=== PATIENT | female | born 1990 | race Caucasian/White ===

== ENCOUNTER 2018-07-31 12:54 | Emergency (ER) | payer BC ==
[2018-07-31 14:32] LABS: WHITE BLOOD COUNT 10.5 10^3/ul (4.8-10.8)
[2018-07-31 14:32] LABS: ADD MAN DIFF? NO; BASOPHILS % 0.4 % (0.0-2.0); EOSINOPHILS # 0.1 10^3/ul (0.0-0.5); EOSINOPHILS % 0.7 % (0.0-7.0); HEMATOCRIT 32.8 % (37.0-47.0); HEMOGLOBIN 10.7 g/dl (12.0-16.0); LYMPHOCYTES # 2.5 10^3/ul (0.8-2.9); MEAN CORPUSCULAR HEMOGLOBIN 29.7 pg (29.0-33.0); MEAN CORPUSCULAR HGB CONC 32.6 g/dl (32.0-37.0); MEAN CORPUSCULAR VOLUME 91.1 fl (82.0-101.0); MEAN PLATELET VOLUME 11.4 fl (7.4-10.4); MONOCYTE # 0.7 10^3/ul (0.3-0.9); MONOCYTES % 6.4 % (0.0-11.0); NEUTROPHIL # 7.1 10^3/ul (1.6-7.5); NEUTROPHILS % 67.7 % (39.0-77.0); PLATELET COUNT 217 10^3/UL (140-415); RED CELL DISTRIBUTION WIDTH 13.2 % (11.5-14.5)
[2018-07-31 14:42] LABS: ADD UMIC NO; UR ASCORBIC ACID NEGATIVE (NEGATIVE); UR BILIRUBIN (Dip) NEGATIVE (NEGATIVE); UR BLOOD (Dip) NEGATIVE (NEGATIVE); UR CLARITY SLIGHTLY CLOUDY (CLEAR); UR COLOR YELLOW (YELLOW); UR GLUCOSE (Dip) NEGATIVE (NEGATIVE); UR KETONES (Dip) NEGATIVE (NEGATIVE); UR LEUKOCYTE ESTERASE (Dip) NEGATIVE Leu/ul (NEGATIVE); UR NITRITE (Dip) NEGATIVE (NEGATIVE); UR RBC 1 /HPF (0-5); UR SPECIFIC GRAVITY (Dip) 1.011 (1.003-1.030); UR SQUAMOUS EPITHELIAL CELL FEW /HPF (FEW); UR TOTAL PROTEIN (Dip) NEGATIVE (NEGATIVE); UR UROBILINOGEN (Dip) NEGATIVE (NEGATIVE); UR WBC 2 /HPF (0-5)
[2018-07-31 14:51] LABS: ALANINE AMINOTRANSFERASE 15 IU/L (13-69); ALBUMIN 3.6 g/dl (3.3-4.9); ALBUMIN/GLOBULIN RATIO 1.12; ALKALINE PHOSPHATASE 72 IU/L (42-121); ANION GAP 9 (5-13); ASPARTATE AMINO TRANSFERASE 14 IU/L (15-46); BILIRUBIN,INDIRECT 0.1 mg/dl (0-1.1); BILIRUBIN,TOTAL 0.1 mg/dl (0.2-1.3); BLOOD UREA NITROGEN 7 mg/dl (7-20); CALCIUM 9.3 mg/dl (8.4-10.2); CARBON DIOXIDE 25 mmol/L (21-31); CHLORIDE 102 mmol/L (97-110); CREATININE 0.49 mg/dl (0.44-1.00); Estimated GFR > 60 mL/min (>60); GLUCOSE 75 mg/dl (70-220); POTASSIUM 4.3 mmol/L (3.5-5.1); SODIUM 136 mmol/L (135-144); TOTAL PROTEIN 6.8 g/dl (6.1-8.1)
== END 2018-07-31 17:20 | disposition home or self-care (01) ==
LOC: FTE 12:54
DX: O26.892 Other specified pregnancy related conditions, second trimester (principal); R10.9 Unspecified abdominal pain; R06.02 Shortness of breath; Z3A.18 18 weeks gestation of pregnancy
CPT/HCPCS: 76805; 80053; 81001; 81003; 85025; 93005; 93970; 99285-25

== ENCOUNTER 2018-12-01 09:57 | Outpatient (CLI) | payer BC ==
[2018-12-01 11:27] LABS: ADD UMIC YES; UR ASCORBIC ACID NEGATIVE (NEGATIVE); UR BACTERIA FEW /HPF (NONE SEEN); UR BILIRUBIN (Dip) NEGATIVE (NEGATIVE); UR BLOOD (Dip) NEGATIVE (NEGATIVE); UR CLARITY SLIGHTLY CLOUDY (CLEAR); UR COLOR YELLOW (YELLOW); UR GLUCOSE (Dip) NEGATIVE (NEGATIVE); UR KETONES (Dip) NEGATIVE (NEGATIVE); UR LEUKOCYTE ESTERASE (Dip) TRACE Leu/ul (NEGATIVE); UR MUCUS FEW /HPF (NONE SEEN); UR NITRITE (Dip) NEGATIVE (NEGATIVE); UR RBC 3 /HPF (0-5); UR SQUAMOUS EPITHELIAL CELL MODERATE /HPF (FEW); UR TOTAL PROTEIN (Dip) NEGATIVE (NEGATIVE); UR UROBILINOGEN (Dip) NEGATIVE (NEGATIVE); UR WBC 11 /HPF (0-5)
[2018-12-01] MEDS: LACTATED RINGER'S 1,000 ML IV (11:34)
== END 2018-12-01 14:40 | disposition home or self-care (01) ==
LOC: OBT 09:57 → L-D 09:59 → OBT 14:40
DX: O62.9 Abnormality of forces of labor, unspecified (principal); Z3A.35 35 weeks gestation of pregnancy
CPT/HCPCS: 36415; 76818; 81001; 82962; 87086; 96360; 96361

== ENCOUNTER 2018-12-12 05:20 | Inpatient (IN) | payer BC ==
[2018-12-12] MEDS ORDERED: CEFAZOLIN 2 GM/50 ML (PMX) 50 ML IVPB ×2 (06:00→10:00)
[2018-12-12] MEDS ORDERED: CARBOPROST 250 MCG INJ IM ×2 (06:00→10:00)
[2018-12-12] MEDS ORDERED: METHYLERGONOVINE 0.2 MG INJ IM ×2 (06:00→10:00)
[2018-12-12] MEDS ORDERED: MISOPROSTOL 200 MCG TAB PR ×2 (06:00→10:00)
[2018-12-12] MEDS ORDERED: OXYTOCIN 30 UNITS/LR 500 ML IV ×3 (06:00→10:00)
[2018-12-12 06:06] LABS: ADD MAN DIFF? NO
[2018-12-12] MEDS: LACTATED RINGER'S 1,000 ML IV ×4 (06:15→23:15)
[2018-12-12 06:17] LABS: BASOPHILS % 0.3 % (0.0-2.0); EOSINOPHILS # 0.1 10^3/ul (0.0-0.5); EOSINOPHILS % 0.9 % (0.0-7.0); HEMATOCRIT 36.5 % (37.0-47.0); LYMPHOCYTES # 2.5 10^3/ul (0.8-2.9); LYMPHOCYTES % 21.6 % (15.0-51.0); MEAN CORPUSCULAR HEMOGLOBIN 29.7 pg (29.0-33.0); MEAN CORPUSCULAR HGB CONC 32.9 g/dl (32.0-37.0); MEAN CORPUSCULAR VOLUME 90.3 fl (82.0-101.0); MONOCYTE # 0.8 10^3/ul (0.3-0.9); MONOCYTES % 7.2 % (0.0-11.0); NEUTROPHILS % 69.2 % (39.0-77.0); PLATELET COUNT 225 10^3/UL (140-415); RED BLOOD COUNT 4.04 10^6/ul (4.20-5.40); RED CELL DISTRIBUTION WIDTH 15.9 % (11.5-14.5)
[2018-12-12 06:17] LABS: WHITE BLOOD COUNT 11.5 10^3/ul (4.8-10.8)
[2018-12-12 06:37] LABS: INR 0.86; PROTIME 11.8 Sec (11.9-14.9); PT RATIO 0.9
[2018-12-12 06:38] LABS: GLUCOSE 96 mg/dl (70-220)
[2018-12-12] MEDS ORDERED: OXYTOCIN 10 UNIT INJ (07:34)
[2018-12-12] MEDS ORDERED: morphine SULFATE/PF (10 MG/10 ML) INJ (07:34)
[2018-12-12] MEDS ORDERED: METOCLOPRAMIDE 10 MG INJ (07:34)
[2018-12-12] MEDS: CITRIC ACID/NA CITRATE 30 ML CUP PO (07:56)
[2018-12-12] MEDS: ONDANSETRON 4 MG INJ IV (07:56)
[2018-12-12] MEDS ORDERED: DEXAMETHASONE 4 MG/ML 1 ML INJ (09:11)
[2018-12-12] MEDS: OXYTOCIN 30 UNITS/LR 500 ML IV (09:42)
[2018-12-12] MEDS ORDERED: MEPERIDINE 25 MG INJ IV (10:00)
[2018-12-12] MEDS ORDERED: TRIMETHOBENZAMIDE 100 MG/ML VIAL IM ×2 (10:00)
[2018-12-12] MEDS ORDERED: NALOXONE (0.4 MG/ML) INJ IV (10:00)
[2018-12-12] MEDS ORDERED: LABETALOL HCL 20MG INJ IV (10:00)
[2018-12-12] MEDS ORDERED: NACL 0.9% 3 ML SYG IV (10:00)
[2018-12-12] MEDS ORDERED: morphine 2 MG INJ IV (10:00)
[2018-12-12] MEDS ORDERED: IPRATROPIUM (NEB) 0.5 MG/2.5 ML AMP HHN (10:00)
[2018-12-12] MEDS ORDERED: MIDAZOLAM 1 MG/ML 2 ML INJ IV (10:00)
[2018-12-12] MEDS ORDERED: FENTAnyl 50 MCG/ML VIAL IV ×3 (10:00)
[2018-12-12] MEDS ORDERED: HYDROmorphONE 1 MG/5 ML IV SYRINGE IV ×3 (10:00)
[2018-12-12] MEDS ORDERED: ONDANSETRON 4 MG INJ IV ×2 (10:00)
[2018-12-12] MEDS ORDERED: NALBUPHINE HCL (10 MG/1 ML) INJ IV (10:00)
[2018-12-12] MEDS ORDERED: EPHEDrine 25 MG/5 ML SYG IV (10:00)
[2018-12-12] MEDS ORDERED: hydrALAzine 20 MG INJ IV (10:00)
[2018-12-12] MEDS ORDERED: DIPHENHYDRAMINE 50 MG INJ IV ×2 (10:00)
[2018-12-12] MEDS ORDERED: ALBUTEROL 0.083% (NEB) 2.5 MG/3 ML AMP HHN (10:00)
[2018-12-12] MEDS: KETOROLAC 30 MG INJ IV ×2 (10:46→21:34)
[2018-12-12] MEDS: ACCU-CHEK XX ×3 (13:50→21:58)
[2018-12-12] MEDS ORDERED: IBUPROFEN 800 MG TAB PO (14:00)
[2018-12-12] MEDS: morphine 2 MG INJ IV (15:29)
[2018-12-12 17:15] LABS: RAPID PLASMA REAGIN NONREACTIVE (NR)
[2018-12-12] MEDS: CEFAZOLIN 2 GM/50 ML (PMX) 50 ML IVPB (17:24)
[2018-12-13] MEDS: CEFAZOLIN 2 GM/50 ML (PMX) 50 ML IVPB ×2 (01:44→08:55)
[2018-12-13] MEDS: KETOROLAC 30 MG INJ IV (04:16)
[2018-12-13] MEDS: LACTATED RINGER'S 1,000 ML IV (06:38)
[2018-12-13] MEDS: ACCU-CHEK XX ×4 (08:45→21:00)
[2018-12-13 08:47] LABS: ADD MAN DIFF? NO
[2018-12-13 08:55] LABS: WHITE BLOOD COUNT 11.2 10^3/ul (4.8-10.8)
[2018-12-13 08:55] LABS: BASOPHILS % 0.3 % (0.0-2.0); EOSINOPHILS % 0.2 % (0.0-7.0); HEMATOCRIT 29.3 % (37.0-47.0); HEMOGLOBIN 9.3 g/dl (12.0-16.0); LYMPHOCYTES # 2.8 10^3/ul (0.8-2.9); LYMPHOCYTES % 24.6 % (15.0-51.0); MEAN CORPUSCULAR HEMOGLOBIN 28.8 pg (29.0-33.0); MEAN CORPUSCULAR HGB CONC 31.7 g/dl (32.0-37.0); MEAN CORPUSCULAR VOLUME 90.7 fl (82.0-101.0); MEAN PLATELET VOLUME 11.8 fl (7.4-10.4); MONOCYTE # 0.8 10^3/ul (0.3-0.9); MONOCYTES % 6.9 % (0.0-11.0); NEUTROPHIL # 7.6 10^3/ul (1.6-7.5); NEUTROPHILS % 67.5 % (39.0-77.0); PLATELET COUNT 186 10^3/UL (140-415); RED BLOOD COUNT 3.23 10^6/ul (4.20-5.40)
[2018-12-13] MEDS: OXYCODONE/ACETAMINOPHEN (5/325) TAB PO ×4 (09:22→23:57)
[2018-12-13] MEDS: LANOLIN HPA 1 PKT TOP (11:31)
[2018-12-13] MEDS: IBUPROFEN 800 MG TAB PO ×2 (13:13→21:29)
[2018-12-13] MEDS: FERROUS SULFATE (EC) 325 MG TAB PO (21:28)
[2018-12-14] MEDS: IBUPROFEN 800 MG TAB PO ×3 (05:49→21:37)
[2018-12-14] MEDS: OXYCODONE/ACETAMINOPHEN (5/325) TAB PO ×3 (07:31→20:07)
[2018-12-14] MEDS: ACCU-CHEK XX ×4 (08:17→21:00)
[2018-12-14] MEDS: FERROUS SULFATE (EC) 325 MG TAB PO ×2 (09:58→21:37)
[2018-12-14] MEDS: SENNA TAB PO ×2 (12:44→21:37)
[2018-12-14] MEDS: MAGNESIUM HYDROXIDE 30ML CUP PO ×2 (12:44→21:37)
[2018-12-15] MEDS: IBUPROFEN 800 MG TAB PO (06:12)
[2018-12-15] MEDS: ACCU-CHEK XX ×2 (07:35→12:30)
[2018-12-15] MEDS: SENNA TAB PO (10:02)
[2018-12-15] MEDS: MAGNESIUM HYDROXIDE 30ML CUP PO (10:02)
[2018-12-15] MEDS: FERROUS SULFATE (EC) 325 MG TAB PO (10:02)
[2018-12-15] MEDS: LANOLIN HPA 1 PKT TOP (10:34)
[2018-12-15] MEDS: BISACODYL 10 MG SUPP PR (11:50)
== END 2018-12-15 13:40 | disposition home or self-care (01) | DRG 788 ==
LOC: L-D 05:20 → PP1 12-13 12:03 → L-D 08:17 → PP1 11:54
PROVIDERS: Obstetrics & Gynecology
PROC: 10D00Z1 Extraction of Products of Conception, Low, Open Approach (ICD-10-PCS; principal; 2018-12-12 07:30)
DX: O65.5 Obstructed labor due to abnormality of maternal pelvic organs (principal); O34.211 Maternal care for low transverse scar from previous cesarean delivery; O24.429 Gestational diabetes mellitus in childbirth, unspecified control; Z3A.37 37 weeks gestation of pregnancy; Z37.0 Single live birth
CPT/HCPCS: 82947; 82962; 85025; 85610; 85730; 86592; 86850; 86900; 86901; 99464